=== PATIENT | male | born 1960 | race Caucasian/White ===

== ENCOUNTER 2019-05-28 06:41 | Day surgery (SDC) | payer BC ==
[~2019-05-28 06:41] MED LIST: Lactated Ringers 1,000 ML IV SCH
--- NOTE | 2019-05-28 07:15 | PCM.PREANE ---
Preanesthetic Assessment - Anesthesia/Transfusion/Family Hx Anesthesia History: Prior Anesthesia Without Reaction Family History of Anesthesia Reaction: No Transfusion History: No Prior Transfusion(s) - Review of Systems General: No Symptoms Pulmonary: No Symptoms Cardiovascular: No Symptoms Gastrointestinal: No Symptoms Neurological: No Symptoms Other: Reports: None - Physical Assessment NPO Status Date: 05/28/19 NPO Status Time: 05:30 (Sip of H2O with BP pill) Vital Signs: Last Vital Signs Temp 97.0 F 05/28/19 07:03 Pulse 86 05/28/19 07:03 Resp 16 05/28/19 07:03 BP 177/103 H 05/28/19 07:03 Pulse Ox 95 05/28/19 07:03 Height: 6 ft Weight: 115.666 kg ASA Class: 2 Mental Status: Alert & Oriented x3 Airway Class: Mallampati = 2 Dentition: Reports: Missing Tooth/Teeth Thyro-Mental Finger Breadths: 3 Mouth Opening Finger Breadths: 3 ROM/Head Extension: Full Lungs: Clear to Auscultation, Normal Respiratory Effort Cardiovascular: Regular Rate, Regular Rhythm - Allergies Allergies/Adverse Reactions: Allergies Allergy/AdvReac Type Severity Reaction Status Date / Time No Known Allergies Allergy Verified 05/25/19 12:53 - Acknowledgements Anesthesia Type Planned: MAC Pt an Appropriate Candidate for the Planned Anesthesia: Yes Alternatives and Risks of Anesthesia Discussed w Pt/Guardian: Yes Pt/Guardian Understands and Agrees with Anesthesia Plan: Yes PreAnesthesia Questionnaire HEENT History: Reports: Other (See Below) Other HEENT History: wears glasses Cardiovascular History: Reports: Hypertension Other Cardiovascular History: Patient BP in pre-op with Dr Ye was 150/90, today is 170/103. Pt states he is having a lot of anxiety this morning as a family member has been perforated during colonscopy in the past. Respiratory History: Reports: None Gastrointestinal History: Reports: Other (See Below) Other Gastrointestinal History: currently has black tarry stools Genitourinary History: Reports: None Musculoskeletal History: Reports: Gout Neurological History: Reports: None Psychiatric History: Reports: Anxiety Endocrine/Metabolic History: Reports: Obesity/BMI 30+ Hematologic History: Reports: None Immunologic History: Reports: None Oncologic (Cancer) History: Reports: None Dermatologic History: Reports: None - Infectious Disease History Infectious Disease History: Reports: Chicken Pox, Measles, Mumps - Past Surgical History GI Surgical History: Reports: Cholecystectomy - SUBSTANCE USE Smoking Status *Q: Former Smoker Tobacco Use Within Last Twelve Months: No Recreational Drug Use History: No - HOME MEDS Home Medications: Home Meds Allopurinol [Zyloprim] 300 mg PO BID 05/25/19 [History] Metoprolol Succinate 50 mg PO QAM 05/25/19 [History] Sildenafil Citrate 60 - 100 mg PO ASDIRECTED PRN 05/25/19 [History] - CURRENT (IN HOUSE) MEDS Current Meds: Current Medications Lactated Ringer's (Ringers, Lactated) 1,000 mls @ 125 mls/hr IV ASDIRECTED DANNY Last Admin: 05/28/19 07:11 Dose: 125 mls/hr
[2019-05-28] MEDS ORDERED: fentaNYL 100 MCG/2 ML SDV ONE (07:26)
[2019-05-28] MEDS ORDERED: Lidocaine 2% 5 ML SDV ONE (07:26)
[2019-05-28] MEDS ORDERED: Propofol 200 MG/20 ML SDV ONE ×4 (07:26→08:16)
[2019-05-28] MEDS ORDERED: Lidocaine 2% 100 MG/5 ML Syringe ONE (07:29)
[2019-05-28] MEDS ORDERED: Ketamine 500 mg/10 ML MDV ONE (07:29)
[2019-05-28] MEDS ORDERED: Glycopyrrolate 0.2 MG/ML SDV ONE (08:12)
--- NOTE | 2019-05-28 08:34 | PCM.OPNOTE ---
- General Post-Op/Procedure Note Date of Surgery/Procedure: 05/28/19 Operative Procedure(s): egd w bx. colonoscopy Findings: see [id number] Pre Op Diagnosis: black tarry stool Post-Op Diagnosis: Same Anesthesia Technique: Moderate Sedation Primary Surgeon: Mir Ye Pathology: egd bx Complications: None Condition: Good
[2019-05-28] MEDS ORDERED: Levofloxacin/Dextrose 5%-Water 750 MG in Premix Bag 1 BAG IV ONE (08:48)
[2019-05-28] MEDS ORDERED: Levofloxacin/Dextrose 5%-Water 150 ML IV ONE (08:50)
--- NOTE | 2019-05-28 09:24 | PCM.SN ---
- Free Text/Narrative Note: ordered levaquin, but did not give
[2019-05-28 09:40] VITALS: BP 158/89; PULSE 77
--- NOTE | 2019-05-28 10:39 | OR ---
SURGEON: Mir Ye MD DATE OF PROCEDURE: 05/28/2019 PREOPERATIVE DIAGNOSES: Gastrointestinal bleeding and black tarry stool. PROCEDURES PERFORMED: Esophagogastroduodenoscopy with biopsy and colonoscopy. DESCRIPTION OF PROCEDURE: EGD: The patient was taken to the endoscopy room, and with the COLUMN PRECASTER, Diprivan was administered. A well-lubricated EGD scope was gently inserted through the oropharynx, down the esophagus, passing through the gastroesophageal junction, into the stomach. The mucosa was examined upon the passage. Any etiology will be noted. Once in the stomach, we continued to advance to the distal antrum, passed through the pylorus into the second portion of the duodenum. Again, the mucosa was examined for any abnormality and etiology. The scope was then retrieved back to the stomach and then retroflexed to look at the fundus of the stomach. If a biopsy was indicated, we will biopsy the antrum, body, and gastroesophageal junction. The air will be sucked out while the scope is retrieved to reduce the patient's discomfort. The patient tolerated the procedure well. There were no intraoperative complications. Dr. Ye was present through the whole procedure. Prior to surgery, a time-out had been called, the patient identified, procedure identified and antibiotic administered. The patient was taken to the endoscopy room. A time out was called, patient identified, and procedure identified. Diprivan was then administrated. Patient went from awake to sleep, hearing doctor talking or door closing is normal. Perineum inspection and digital examination were then performed. A well- lubricated colonoscope was gently inserted through the rectum, advanced past the rectosigmoid junction, the descending colon, splenic flexure, transverse colon, hepatic flexure, ascending colon, arrived to the cecum. Cecum was identified as dictated in the finding. Then the scope was carefully withdrawn while attention was paid to the mucosal surface for any abnormality. Air will be sucked out during the scope withdrawal. At the rectum, retroflexed to examine any rectal diseases, fistula or hemorrhoids. Patient tolerated procedure well. There were no intraoperative complications, and Dr. Ye was present throughout the whole procedure. FINDINGS: EGD findings: 1. The patient is easily sedated with COLUMN PRECASTER and Diprivan, the patient is soundly snoring. 2. Oropharynx and proximal esophagus are free of disease, stricture, or inflammation. GE junction at 40 shows moderate salmon-colored change, suggestive of moderate acid reflux. There is no ulcer. There is no blood. Stomach rugae are normal in appearance. Large amount of bile in the stomach. Antrum is quite inflamed and a couple of old blood. There is no nicole ulcer observed. There is no food particle. Duodenum is grossly normal in appearance. Retroflexed look at the fundus of the stomach, there is no hiatal hernia. Biopsy done at antrum and biopsy one more piece, looks like it is old blood on antrum, so two antrum and one body and one GE junction at 40 and sucked out the gas while scope pulling out. Colonoscopy findings: 1. The patient is easily sedated with COLUMN PRECASTER and Diprivan, the patient is soundly snoring. 2. Bowel prep is average or little bit below average. There is a large amount of bubbles. Simethicone was used and the bubble disappeared. Colon is rather straightforward. Cecum indicated by ileocecal fold, one-to-one indentation, and appendiceal orifice. Light emittance is not observed. The ScopeGuide is pointing south. Mucosa examined upon scope pulling out. The patient has moderate amount of diverticulosis at the left colon and a couple of diverticula in the right colon and nothing in between. There are no signs or symptoms of diverticulitis, but just diverticula. No polyp, inflammation, stricture, ulceration, AV malformation, bleeding, none of those. The patient has mild internal hemorrhoids and no external hemorrhoids. The patient would benefit from repeat colonoscopy 10 years from today or if clinically indicated otherwise. For the patient's gastritis and acid reflux, the patient will be started on PPI if he is not already taking it. The patient probably would, depending on the pathology report, maybe repeat an EGD in six months if beneficial. STEPHANI / JEANA /[id number]
--- NOTE | 2019-05-28 11:18 | PCM.POSTAN ---
POST ANESTHESIA ASSESSMENT - MENTAL STATUS Mental Status: Alert, Oriented - VITAL SIGNS Vital Signs: Last Vital Signs Temp 97.0 F 05/28/19 07:03 Pulse 77 05/28/19 09:15 Resp 14 05/28/19 09:15 BP 158/89 H 05/28/19 09:15 Pulse Ox 94 L 05/28/19 09:15 - RESPIRATORY Respiratory Status: Respiratory Rate WNL, Airway Patent, O2 Saturation Stable - CARDIOVASCULAR CV Status: Pulse Rate WNL, Blood Pressure Stable - GASTROINTESTINAL GI Status: No Symptoms - POST OP HYDRATION Hydration Status: Adequate & Stable
--- NOTE | 2019-05-28 11:19 | PCM48HPAN ---
Post Anesthesia Note - EVALUATION WITHIN 48HRS OF ANESTHETIC Vital Signs in Normal Range: Yes Patient Participated in Evaluation: Yes Respiratory Function Stable: Yes Airway Patent: Yes Cardiovascular Function Stable: Yes Hydration Status Stable: Yes Pain Control Satisfactory: Yes Nausea and Vomiting Control Satisfactory: Yes Mental Status Recovered: Yes Vital Signs: Last Vital Signs Temp 97.0 F 05/28/19 07:03 Pulse 77 05/28/19 09:15 Resp 14 05/28/19 09:15 BP 158/89 H 05/28/19 09:15 Pulse Ox 94 L 05/28/19 09:15
== END 2019-05-28 09:35 | disposition home or self-care (01) ==
LOC: MW.SDS 06:41
PROVIDERS: ATTEND Surgery
DX: K57.31 Diverticulosis of large intestine without perforation or abscess with bleeding (principal); K29.71 Gastritis, unspecified, with bleeding; K21.0 Gastro-esophageal reflux disease with esophagitis; K64.8 Other hemorrhoids; K31.89 Other diseases of stomach and duodenum; I10 Essential (primary) hypertension; E78.5 Hyperlipidemia, unspecified; M10.9 Gout, unspecified; Z87.891 Personal history of nicotine dependence; Z79.899 Other long term (current) drug therapy
CPT/HCPCS: 43239; 45378; J2001; J2704; J3490; J7120; 88305; 88312; J1956; J3010